=== PATIENT | female | born 2000 | race Caucasian/White ===

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

== ENCOUNTER 2018-03-16 20:02 | Emergency (ER) | END 2018-03-16 20:24 | disposition left against medical advice (07) ==

== ENCOUNTER 2018-10-24 11:08 | Emergency (ER) | payer BC ==
[~2018-10-24] VITALS: Wt 63.5 kg
[~2018-10-24 11:08] MED LIST changes: +BEN25 PO; +MECL12.574 PO; +METO10TA92 PO; +NAPR-985 PO
[2018-10-24 11:11] VITALS: BP 126/57; PULSE 68; RESP 18
[2018-10-24] MEDS ORDERED: KETOROLAC 60 MG INJ IM STA (12:41)
[2018-10-24] MEDS ORDERED: CYCLOBENZAPRINE 10 MG TAB PO ONE (13:00)
[2018-10-24] MEDS ORDERED: CYCL10TA7 PO (13:45)
[2018-10-24] MEDS ORDERED: IBUP-1542 PO (13:45)
--- NOTE | 2018-10-31 17:43 | ERD ---
ER Documentation Chief Complaint Chief Complaint neck pain and shoulder pain with limited rom. no fever or trauma HPI 18-year-old female patient with no significant past medical history presents ED complaining of neck and shoulder pain and states that when she moves her shoulders, it worsens the pain. Denies any chest pain, shortness of breath, nausea, vomiting, diarrhea, neck stiffness, loss sensation, loss of range of motion. Denies any trauma or injuries. Patient reports that her muscle aches. Denies any cough, rhinorrhea. ROS All systems reviewed and are negative except as per history of present illness. Medications Home Meds Active Scripts Cyclobenzaprine Hcl* (Cyclobenzaprine Hcl*) 10 Mg Tablet, 10 MG PO TID, #15 TAB Prov:SHAILA BAIRES PA-C 10/24/18 Ibuprofen* (Motrin*) 600 Mg Tab, 600 MG PO Q6, #30 TAB Prov:SHAILA BAIRES PA-C 10/24/18 Diphenhydramine Hcl* (Benadryl*) 25 Mg Cap, 25 MG PO Q6 PRN for ITCHING/RASH, #30 TAB Prov:PASILABANCRISTEL F 11/10/17 Meclizine Hcl* (Antivert*) 12.5 Mg Tab, 12.5 MG PO Q6H PRN for DIZZINESS, #20 TAB Prov:PASILABANCRISTEL F 11/10/17 Metoclopramide* (Reglan*) 10 Mg Tablet, 10 MG PO Q6 PRN for NAUSEA AND/OR VOMITING, #30 TAB Prov:PASILACRISTEL REEVES F 11/10/17 Ibuprofen* (Motrin*) 600 Mg Tab, 600 MG PO Q6H PRN for PAIN AND OR ELEVATED TEMP, #30 TAB Prov:PASILABANNAOMYAR F 11/10/17 Naproxen* (Naprosyn*) 500 Mg Tablet, 500 MG PO BID PRN for PAIN AND/OR INFL AMMATION, #30 TAB Prov:SUDEEP JAVIER 06/08/17 Ibuprofen* (Ibuprofen*) 600 Mg Tablet, 600 MG PO Q8 for PAIN AND/OR INFLAMMATION, #30 TAB Prov:STEPHAN COSTELLO MD 11/22/15 Allergies Allergies: Coded Allergies: No Known Allergy (Unverified , 03/16/18) PMhx/Soc Medical and Surgical Hx: pt denies Medical Hx, pt denies Surgical Hx History of Surgery: No Anesthesia Reaction: No Hx Neurological Disorder: No Hx Respiratory Disorders: No Hx Cardiac Disorders: No Hx Psychiatric Problems: No Hx Miscellaneous Medical Probl: No Hx Alcohol Use: No Hx Substance Use: No Hx Tobacco Use: No Smoking Status: Never smoker FmHx Family History: No diabetes, No coronary disease Physical Exam Vitals Temp 98.8 Pulse 68 Resp 18 SBP 126 DBP 75 O2 Sat 98 Physical Exam Const: Oyc-epz-rnljgyesu, well-nourished. In no acute distress. Head: Atraumatic, normocephalic Eyes: Normal Conjunctiva without injection. No purulent discharge. PERRL. EOMI ENT: Normal external ear. Ear canal without erythema. Tympanic membrane pearly breaux without effusion or bulging. Nasal canal clear with normal turbinates. Moist oropharynx without tonsillar exudates. Non-erythematous pharynx. Uvula midline. No drooling. No trismus. Neck: Full range of motion. No meningismus. No cervical lymphadenopathy. Tenderness to palpation of the trapezius muscle. Resp: Clear to auscultation bilaterally. No wheezing, rhonchi, rales, or crackles. No accessory muscle use. No retractions. Cardio: Regular rate and rhythm. No murmurs, rubs or gallops. Abd: Soft, non tender, non distended. Normal bowel sounds. No palpable masses. No rebound tenderness. No guarding. Skin: No petechiae or rashes Back: No midline tenderness. No CVA tenderness. Ext: No cyanosis, or edema. Full trace full Neur: Awake and alert. Psych: Normal Mood and Affect Results 24 hrs Laboratory Tests Test 10/24/18 13:15 POC Beta HCG, Qualitative NEGATIVE Current Medications Medications Dose Sig/Clark Start Time Status Last (Trade) Ordered Route PRN Stop Time Admin Dose Reason Admin Ketorolac 60 mg ONCE STAT 10/24/18 DC 10/24/18 Tromethamine IM 12:41 13:23 (Toradol) 10/24/18 12:42 10 mg ONCE ONCE 10/24/18 DC 10/24/18 Cyclobenzapri PO 13:00 13:22 ne HCl 10/24/18 13:01 (Flexeril) Procedures/MDM 18-year-old female patient with no significant past medical history presents ED complaining of bilateral shoulder pain. Patient is afebrile and nontoxic-a ppearing. Patient was given Toradol 60 mg IM, Flexeril here in the ED with improvement of her symptoms. Urine negative. Patient's pain is likely musculoskeletal. Low suspicion for neck fracture, atypical MA, carotid dissection, stroke, MA. No evidence of fractures, dislocations, compartment syndrome, neurologic injury, vascular injury, open joint, open fracture, tendon laceration, septic arthritis, osteomyelitis, DVT, foreign body, or other emergent conditions. Diagnosis: Neck Pain Discharge medications: Cyclobenzaprine, Ibuprofen Follow up with primary care physician in 1-2 days. Instructed patient to return to the ED sooner for any worsening symptoms. Patient's questions were answered. Patient is hemodynamically stable. Patient understood and agreed with discharge plan. Patient discharged stable. Disclaimer: Inadvertent spelling and grammatical errors are likely due to EHR/dictation software use and do not reflect on the overall quality of patient care. Also, please note that the electronic time recorded on this note does not necessarily reflect the actual time of the patient encounter. Departure Diagnosis: Primary Impression: Neck pain Condition: Stable Patient Instructions: Neck Pain, No Trauma Referrals: COMMUNITY CLINICS YOU HAVE RECEIVED A MEDICAL SCREENING EXAM AND THE RESULTS INDICATE THAT YOU DO NOT HAVE A CONDITION THAT REQUIRES URGENT TREATMENT IN THE EMERGENCY DEPARTMENT. FURTHER EVALUATION AND TREATMENT OF YOUR CONDITION CAN WAIT UNTIL YOU ARE SEEN IN YOUR DOCTORS OFFICE WITHIN THE NEXT 1-2 DAYS. IT IS YOUR RESPONSIBILITY TO MAKE AN APPOINTMENT FOR FOLOW-UP CARE. IF YOU HAVE A PRIMARY DOCTOR --you should call your primary doctor and schedule an appointment IF YOU DO NOT HAVE A PRIMARY DOCTOR YOU CAN CALL OUR PHYSICIAN REFERRAL HOTLINE AT IF YOU CAN NOT AFFORD TO SEE A PHYSICIAN YOU CAN CHOSE FROM THE FOLLOWING [facility] CLINICS [facility] [address] [facility] [address] [facility]. [facility] [address] [facility] [address] [facility] [address] [facility]. [facility] [address] [facility]. [facility] YOU HAVE RECEIVED A MEDICAL SCREENING EXAM AND THE RESULTS INDICATE THAT YOU DO NOT HAVE A CONDITION THAT REQUIRES URGENT TREATMENT IN THE EMERGENCY DEPARTMENT. FURTHER EVALUATION AND TREATMENT OF YOUR CONDITION CAN WAIT UNTIL YOU ARE SEEN IN YOUR DOCTORS OFFICE WITHIN THE NEXT 1-2 DAYS. IT IS YOUR RESPONSIBILITY TO MAKE AN APPOINTMENT FOR FOLOW-UP CARE. IF YOU HAVE A PRIMARY DOCTOR --you should call your primary doctor and schedule and appointment IF YOU DO NOT HAVE A PRIMARY DOCTOR YOU CAN CALL OUR PHYSICIAN REFERRAL HOTLINE AT . IF YOU CAN NOT AFFORD TO SEE A PHYSICIAN YOU CAN CHOSE FROM THE FOLLOWING [facility] INSTITUTIONS: [facility] [address] [place] [address] [facility] [address] [place], [place] [id number] [place] [address] [address] [place] [address] [facility] URGENT CARE/SPECIALTIES Additional Instructions: Call your primary care doctor TOMORROW for an appointment during the next 2-3 days.See the doctor sooner or return here if your condition worsens before your appointment time. SHAILA BAIRES PA-C October 31, 2018 17:43
== END 2018-10-24 14:20 | disposition home or self-care (01) ==
LOC: FTE 11:08
DX: M54.2 Cervicalgia (principal)
CPT/HCPCS: 81025; 96372; 99284; J1885; Z7610